=== PATIENT | male | born 1940 | race Caucasian/White ===

== ENCOUNTER 2016-08-19 01:52 | Day surgery (SDC) | payer MEDICARE, OTHER ==
[2016-08-19] VITALS (15 sets, daily range): BP systolic 105–126; BP diastolic 52–71; PULSE 45–59; RESP 12–22; O2SAT 96–98
[~2016-08-19] VITALS: Ht 170.2 cm; Wt 67.1 kg
[~2016-08-19 01:52] MED LIST: ASPI-973 PO; METO25TA6 PO; NITR0.4T6 SL; PRAV40TA PO
[2016-08-19 09:40] LABS: BASOPHILS % (AUTO) 0.6 % (0-3); EOSINOPHILS % (AUTO) 5.1 % (0-5); MONOCYTES % (AUTO) 6.4 % (4-12); Mean Corpuscular Volume 89.9 fL (81-100); NEUTROPHILS % (AUTO) 64.4 % (40-74); Platelet Count 244 bil/L (150-400)
[2016-08-19] MEDS ORDERED: 0.9% Sodium Chloride 1,000 ML IV ONE ×2 (11:00→18:20)
[2016-08-19] MEDS ORDERED: Heparin 1,000 Units/500 mL NS Premix IV ONE ×2 (11:34→12:56)
[2016-08-19] MEDS ORDERED: Heparin 5,000 Units/500 mL NS Premix IV ONE ×4 (11:34→13:34)
[2016-08-19] MEDS ORDERED: fentaNYL-PF 50 mCg/mL 2 mL Inj ONE ×2 (11:49→14:03)
[2016-08-19] MEDS ORDERED: Heparin 1,000 Unit/mL 10 mL Inj ONE (12:26)
[2016-08-19] MEDS ORDERED: Atropine 1 mg/10 mL (Code) Syringe ONE (12:31)
[2016-08-19] MEDS ORDERED: Nitroglycerin 50,000 mcg/250 mL D5W Premix IV ONE (13:14)
[2016-08-19] MEDS ORDERED: Abciximab Bolus 2 mg/mL 5 mL Inj ONE (14:24)
--- NOTE | 2016-08-19 15:49 | NUR ---
Care assumed Care assumed at 1530. Nurse reported tract ooze with one dressing change already. Pressure held for 10 minutes and dressing changed. Continue to monitor. VSS. Denies pain. Tele SB in mid 40's. IVF infusing per orders. Continue to monitor.
--- NOTE | 2016-08-19 16:50 | NUR ---
Transfer VSS. Groin remains with small amt. tract ooze. No hematoma. Report to Cheri Atkins RN at 1630. Transported to 2004 via bed at 1650 with all belongings in no distress. Bedside check done.
--- NOTE | 2016-08-19 17:50 | CS94 ---
[address] [address] DIAGNOSTIC CARDIAC CATHETERIZATION PATIENT: JENNY WESLEY : 1940 MR#: [id number] ADMIT: 08/19/2016 JOB ID: [id number] SERVICE DATE: 08/19/2016 PROCEDURES PERFORMED: 1. Coronary angiography. 2. Intravascular ultrasound of the right coronary artery. 3. Percutaneous intervention with stent placement to the right coronary artery (complex intervention). INDICATIONS: A 76-year-old man with past medical history significant for hyperlipidemia with approximately two years with stable anginal symptoms now with progressive anginal symptoms especially when going up inclines. He has an abnormal stress test suggesting inferior wall ischemia. DESCRIPTION OF PROCEDURE: Informed consent was obtained. Patient brought to catheterization laboratory. Bilateral groins were prepped and draped in usual fashion and the area over the right femoral artery was anesthetized with lidocaine using modified Seldinger technique and a micropuncture kit, access was obtained, a 5-Japanese sheath was advanced. Next, a 5-Japanese JL4 catheter was advanced over a wire and used to cannulate the left coronary artery and angiographic views obtained. This catheter was removed and a 5-Japanese JR4 catheter was advanced over a wire and used to cannulate to the right coronary artery and angiographic views obtained. Given findings of what appeared to be an occluded versus subtotalled right coronary artery, an intervention was planned. A current 5-Japanese sheath was removed, a 6-Japanese sheath was advanced. Next, a 6-Japanese no torque right guide was advanced over a wire and used to cannulate the right coronary artery. Angiographic view was obtained. Heparin was given for anticoagulation. A Prowater wire would not advance across the area of stenosis. Ultimately, a whisper wire was fed through an [id number]-joc-ylms 1.5 mm balloon. This was able to be ultimately advanced in the vessel; however the 1.5 mm balloon would not advance. This was changed out for a Recruiting Intern 50 wire in the hopes that it would give more backup so that the balloon would be passed, however this was not successful. Ultimately, the balloon was removed and the wire was advanced distally and Theralogix Corsair microcatheter was advanced and this was able to be advanced fairly distally so that injection performed to confirm that it was intraluminal. Ultimately, a grand slam wire was used to provide more strength and micro cath was removed. A 1.25 x 10 mm balloon was advanced to the area of stenosis and inflated to nine atmospheres throughout the area of stenosis. This was then removed and a 1.5 x 20 mm balloon was advanced over this area of stenosis and inflated in the range of 9-10 atmospheres. It was pulled back more proximally and inflated to 13 atmospheres. Ultimately, a 2 x 30 mm balloon was advanced to the area of stenosis. This was inflated to 10 atmospheres. After this, IVUS was advanced to assess the size of the vessel. Distal to the area of occlusion, the vessel was diffusely diseased and the diameter to the EEM was estimated in the range of 2.5 to 3 mm, however there was significant plaque. In the inner lumen, it was closer to 2 mm. Based upon the appearance of the vessel after balloon dilation and the diffuse nature of the plaque, decision was made to treat with a 2.25 mm balloon. However this was not available, therefore a 2.5 x 15 mm balloon was advanced to the area of stenosis and this was inflated in the range of 4-5 atmospheres. Ultimately, a 2.25 x 28 mm Xience stent was advanced. The stent was ultimately inflated to 10 atmospheres. A 2.5 x 12 mm balloon was advanced in the area of proximal stenting because additional stent was going to be required. This was inflated up to 10 atmospheres. An additional 2.25 x 12 mm stent was advanced proximally reassuring that there was appropriate stent overlap. This was inflated at 16 atmospheres. It was also advanced in the area of overlap and inflated in the range of 12 to 13 atmospheres with excellent flow distally. After stenting, this gave an excellent angiographic result with no residualstenosis, no dissection, and brisk flow in the artery. The case was ended. The guide and wire was removed. Hemostasis was achieved with StarClose device. There were no complications. FINDINGS: Coronaries: 1. Left main: This has minor disease. 2. Circumflex artery. This vessel has evidence for mostly mild luminal irregularities. 3. Left anterior descending artery. There is some mild disease appreciated in the proximal vessel. There are diagonals which supply an intermediate distribution which have no obstructive disease. There is evidence of some left to right collateralization filling the distal right coronary artery 4. Right coronary artery: This vessel appears in the range of 2.5 to 3 mm in its proximal segment. There is an area of what appears to be occluded with some distal filling of the vessel felt to be related to bridging collaterals which is rated at KRISTIN 1-2. However there appeared to be the potential for a track into the distal vessel. As noted, the area of occlusion was ultimately crossed. It was treated with increasing balloon dilation. IVUS was used to assess the size of the vessel and extent of plaque. Ultimately 2.25 mm stents were advanced in the area of of stenosis and deployed at nominal pressures with a final more proximal stent given the lack of availability of a long 2.25 mm stent which was inflated to higher atmospheres. After initial stenting, postdilation was performed throughout the stented area. After stenting, this gave an excellent angiographic result. There was brisk flow in the artery and there is no further evidence of competitive flow in the PDA as previously seen. HEMODYNAMICS: Aortic pressure in the range of 115-152 systolic, heart rates in the range of 75-100. Medications given during the case include sedation as per dental laboratory technician apprentice record. The patient was given normal saline during the course of the procedure. Also given heparin to achieve therapeutic ACTs. At the end of the case, he was given a prasugrel loading dose and bolus of ReoPro. The patient tolerated the procedure well. IMPRESSION: 1. 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 2. No other obstructive coronary disease appreciated. [facility]
[2016-08-19] MEDS ORDERED: Sodium Chloride LOK Flush 10 mL Syringe IVFLUSH PRN (18:20)
[2016-08-19] MEDS ORDERED: HYDROcodone-APAP 5-325 mg Tablet PO PRN (18:20)
[2016-08-19] MEDS ORDERED: Ondansetron 2 mg/mL 2 mL Inj IVPUSH PRN (18:20)
[2016-08-19] MEDS ORDERED: 0.9% Sodium Chloride 250 ML BOLUS IV PRN (18:20)
[2016-08-19] MEDS ORDERED: Atropine 1 mg/10 mL (Code) Syringe IVPUSH PRN (18:20)
--- NOTE | 2016-08-19 18:28 | NUR ---
Admit Pt admitted to [facility] at 1700 from [facility]. at the bedside. All belongings brought with. Pt A&Ox3, on bedrest till 194, SB 49, on RA. Right groin dressing at that time was CDI, minimal swelling and no bruising. Rechecked groin site at 1745 and the dressing had bled through, no increased swelling, minimal bruising noted. Held manual pressure for 15 min, notified and asked me to continue with manual pressure, when oozing slows add pressure dressing. Call if anything worrisome. Pressure dressing applied at 1830 with 5lb sand bag. Q15 min groin checks.
--- NOTE | 2016-08-19 21:00 | NUR ---
Groin site Pt's right groin site continues to ooze. Area soft, bruising under the surface. Charge and second CCU nurse examined. Pressure dressing applied.
--- NOTE | 2016-08-20 00:30 | NUR ---
Groin site oozing Pt's groin site continues to ooze. Pt found to be sitting up using the urinal after he was asked to keep flat as previous assessment showed that he was oozing at the site. Pt education surrounding the need to remain supine. Dressing changed.
[2016-08-20 03:00] LABS: Mean Corpuscular Volume 91.1 fL (81-100)
[2016-08-20 03:35] VITALS: BP 126/69; PULSE 52; RESP 16; O2SAT 96
--- NOTE | 2016-08-20 03:45 | NUR ---
Groin site oozing Pt's site no longer oozing past the guaze located directly on site. Non noted inside the Tegaderm outer dressing. Pressure bandage continues to be in place. Most lower legs warm, pulses strong and equal on both extremities. Pt denies any pain or discomfort.
[2016-08-20 08:00] VITALS: PULSE 60
[2016-08-20 08:40] VITALS: BP 109/69; PULSE 55; RESP 16; O2SAT 99
[2016-08-20] MEDS ORDERED: CLOP75TA28 PO (11:21)
--- NOTE | 2016-08-20 13:00 | NUR ---
Discharge Pt left at 1300 with via private car. A&Ox3, MA, up in [place] with . Right groin site soft and non tender, slight bruising, no bleeding since MD last checked. All discharge instructions gone over and understood. New prescription given and medication information given to pt. All belongings taken with. IVx2 and tele removed.
--- NOTE | 2016-08-20 21:19 | DIS ---
[address] [address] DISCHARGE SUMMARY PATIENT: JENNY WESLEY : 1940 MR#: [id number] ADMIT: 08/19/2016 JOB ID: [id number] DIS: 08/20/2016 ADMISSION DIAGNOSIS: Angina abnormal stress test. PROCEDURES PERFORMED: Cardiac catheterization with stenting of the right coronary artery. HISTORY OF PRESENT ILLNESS: The patient is a gentleman with hyperlipidemia who has been experiencing angina at high levels of exertion. He is already on antianginals at this time. HOSPITAL COURSE: The patient taken to the film laboratory technician. There, a very complex right coronary lesion was identified and felt to be an occluded vessel. However, this was able to be opened up and stented with two drug-eluting stents. The patient did well overnight without any problems with ectopy. There was some oozing from the StarClose closure site, however, this did not result in any significant change in hematocrit and ultimately was corrected with injection of lidocaine with epinephrine. PHYSICAL EXAMINATION: Prior to discharge, blood pressure 126/69, heart rate 52, he is afebrile. Sats are 96% on room air. In no acute distress. Speaking in full sentences without apparent shortness of breath. Head and neck exam: Normocephalic, atraumatic. Heart exam: Regular rate, rhythm. Lungs clear. Abdomen is soft. Extremities: Warm without edema. Groin site: There is some bruising but no hematoma. Good palpable pulse. No bruits. Again, some oozing around the access site which was corrected with lido with epi. LABORATORIES: On the day of discharge, show white count 7.6, H/H 12.8 and 38.8, platelets 228,000. Chemistry shows sodium 139, potassium 4.5, chloride and bicarb 102 and 23 respectively and BUN and creatinine 18 and 0.87. DISCHARGE MEDICATIONS: 1. Aspirin 325 mg a day for one month and going to 81 mg a day. 2. Metoprolol 25 b.i.d. as previously started by his primary care provider. 3. Plavix 75 mg p.o. daily. 4. Pravastatin He has a followup on August 31 at noon I spent greater than 30 minutes discussing the patient's diagnosis, the need for him to be compliant with aspirin and Plavix. I went over the films with the family members as well. MCKENNA
== END 2016-08-20 13:00 | disposition home or self-care (01) ==
LOC: SOUO 01:52 → PCC 16:49 → SOUO 08-20 13:00
PROVIDERS: ATTEND Internal Medicine
DX: I25.119 Atherosclerotic heart disease of native coronary artery with unspecified angina pectoris (principal); E78.5 Hyperlipidemia, unspecified; Z79.82 Long term (current) use of aspirin
CPT/HCPCS: 36415; 80048; 85025; 85027; 92978; 93005; 93454; 99152; 99153; C1725; C1753; C1760; C1769; C1874; C1887; C9600; J0130; J1200; J1644; J2060; J2250; J3010; J7030; Q9967

== ENCOUNTER 2017-01-07 12:10 | Emergency (ER) | payer MEDICARE, OTHER ==
[~2017-01-07] VITALS: Ht 170.2 cm; Wt 65.9 kg
[~2017-01-07 12:10] MED LIST changes: +CLOP75TA28 PO; +NITR0.4T38 SL; -NITR0.4T6 SL
[2017-01-07 12:18] VITALS: BP 108/38; PULSE 52; RESP 16; O2SAT 100
--- NOTE | 2017-01-07 12:31 | ED.REPORT ---
HPI-Syncope Date of Service Jan 07, 2017 ED Provider: Jenna Lai MD The patient is a 77 year old male with a hx of a heart catheter and stent on August 20, 2016, and he takes Metoprolol presenting to the ED via EMS complaining of a near-syncopal episode onset today while he was at the gym using a standing gluteal machine. The episode lasted about 10 minutes and started to get better when he was placed on the floor. The patient claims that he did have breakfast before going to the gym and did not feel dehydrated. He claims that he feels dizziness, fatigued, and tunnel vision. Per the diabetes trainer, the patient was unresponsive. The patient denies fever, chills, nausea, SOB, chest pain or wheezing. Nursing Notes Stated Complaint: SYNCOPE Chief Complaint: General Complaint Nursing Notes Reviewed: Yes Allergies: Coded Allergies: Penicillins (Verified Allergy, Intermediate, 01/07/17) RASH AT INJECTION SITE Scheduled Aspirin (Aspirin) 81 Mg Tablet 325 MG PO DAILY Clopidogrel (Clopidogrel) 75 Mg Tablet 75 MG PO DAILY Metoprolol Tartrate (Metoprolol Tartrate) 25 Mg Tablet 25 MG PO BID Pravastatin (Pravastatin) 40 Mg Tablet 20 MG PO DAILY Scheduled PRN Nitroglycerin SL (Nitroglycerin SL) 0.4 Mg Tab.subl 0.4 MG SL PRN For Pain General Time Seen by Provider: 12:30 Chief Complaint Almost passed out Hx Obtained From: EMS Arrived By: Ambulance Onset Occurred: Just prior to arrival Context of Onset: Occurred during sports (working out at gym) Recent Healthcare: No recent doctor visit, No recent hospitalization Similar Sx Previous: No Past Medical History Past Medical History heart catheter with stent August 20, 2016 Metoprolol Past Surgical History Heart catheter with stent August 20, 2016 Sinus surgery Smoking History Unknown if Ever Smoker Social History Other Social History: Good social support Ambulatory Status Independent Review of Systems +tunnel vision Constitutional: Reports: Fatigue, Denies: Chills, Fever Respiratory: Denies: Shortness of breath, Wheezing Cardiovascular: Denies: Chest pain GI: Denies: Nausea Neurologic: Reports: Dizziness, Syncope (near-syncope) Complete sys rev & neg: except as marked. Physical Exam Initial Vital Signs Vital Signs (First) Date Time Temp Pulse Resp B/P Pulse Ox O2 Delivery O2 Flow Rate FiO2 01/07/17 12:18 36.1 52 16 108/38 100 Room Air Initial VS: Reviewed, Vital signs normal Head / Eyes: Atraumatic, Normocephalic, PERRL Abdomen / GI: Soft, Non-tender, No guarding, No rebound, No distention Back: No CVA tenderness Upper Extremities: Vascular intact, Neuro intact, No swelling, No tenderness Psychiatric: Mood/affect normal, Behavior normal, Normal thought content General/Constitutional: Awake, Alert, Well appearing Respiratory / Chest: Breath sounds NL, Breath sounds = bilat, No respiratory distress, No rales, No rhonchi, No wheezing Cardiovascular: Heart rate NL, Regular rhythm, Heart sounds NL, No murmurs Sitting: BP 98/53 HR 54 Standing: BP 104/53 HR 60 Lower Extremity / Pelvis / MS: Atraumatic, No edema Neurologic: Oriented X3, Speech NL, No motor deficits, No sensory deficits, CN II - XII intact, Reflexes equal bilat, Cerebellar NL well perfused neurologically Skin: Atraumatic, Warm, Dry 2-3 day old bruise on left arm Interpretation & Diagnostics Lab Results Interpretation Result Diagram: 01/07/17 1230 01/07/17 1230 Test 01/07/17 12:30 White Blood Count 10.3th/mm3 (3.8-10.1) Red Blood Count 4.39mil/mm3 (4.40-5.80) Hemoglobin 13.8g/dL (13.8-17.2) Hematocrit 39.7% (41.0-50.0) Mean Corpuscular Volume 90.4fL (81-100) Mean Corpuscular Hemoglobin 31.4pg (27.0-35.0) Mean Corpuscular Hemoglobin Concent 34.8% (32.0-37.0) Red Cell Distribution Width 12.6% (12.3-15.4) Platelet Count 207bil/L (150-400) Neutrophils (%) (Auto) 74.8% (40-74) Lymphocytes (%) (Auto) 12.6% (14-46) Monocytes (%) (Auto) 6.0% (4-12) Eosinophils (%) (Auto) 6.1% (0-5) Basophils (%) (Auto) 0.4% (0-3) Prothrombin Time 10.4sec (8.1-12.5) Prothromb Time International Ratio 0.97ratio Sodium Level 140mEq/L (134-144) Potassium Level 4.4mEq/L (3.5-5.2) Chloride Level 104mEq/L (97-108) Carbon Dioxide Level 22mmol/L (18-29) Blood Urea Nitrogen 21mg/dL (8-27) Creatinine 0.86mg/dL (0.76-1.27) Estimat Glomerular Filtration Rate 92mL/min (>59) Glucose Level 80mg/dL (60-99) Calcium Level 9.0mg/dL (8.5-10.1) Magnesium Level 2.1mg/dL (1.6-2.6) Total Bilirubin 0.9mg/dL (0.0-1.2) Aspartate Amino Transf (AST/SGOT) 48U/L (0-50) Alanine Aminotransferase (ALT/SGPT) 31U/L (0-44) Alkaline Phosphatase 58U/L (25-160) Troponin T < 0.010ug/L (0.0-0.011) Total Protein 6.4g/dL (6.4-8.4) Albumin 4.0g/dL (3.4-5.0) Hold Smith Top Tube Received (Received) ECG Interpretation ECG Interpretation: Similar to 08/19/16 Nonspecific intraventricular conduction delay Time: 12:28 Interpreted by: ED physician Normal ECG Interpretation: Normal rate (54), Normal sinus rhythm, No acute ischemic changes X-Ray Chest Interpretation Chest Xray Interpretation: IMPRESSION: No acute disease. Dictated by: Lenny Minor M.D. on 01/07/2017 at 12:17 Approved by: Lenny Minor M.D. on 01/07/2017 at 12:18 View: Portable, 1 view Interpretation / Wet Read by: Interpret - Radiologist Re-Eval/Medical Decision Med Decision/Clinical Course 77-year-old gentleman status cardiac post stent placement in July of this year. Doing well exercising regularly working with a diabetes trainer this morning and had a near syncopal episode. No chest pain diaphoresis or shortness of breath. Was found to be slightly hypotensive by medics initially. Did receive 700 mL of fluid in route to ER. He was not orthostatic upon arrival in the emergency department. His ER visit is entirely unremarkable with monitor tech remaining normal chest x-ray labs and EKG are unremarkable with a normal troponin. Patient was just seen by his salt machine operator, Dr. Maria Fernanda Medina, last week. Spoke with her this afternoon and she would like him to come over to her office after departing from the emergency department. We'll arrange for extended cardiac monitoring. No evidence for acute cardiac event acute coronary syndrome STEMI stroke orthostatic hypotension infection or other life-threatening etiology at this time Re-Evaluation/Progress : Time of Eval: 13:45 Patient Status: Condition improved Re-Evaluation/Progress Note: Patient rechecked. Discussed plan to discharge. Patient understands and agrees with plan. All questions addressed at this time. Consultation : Referral / Consult Name: Clotilde Medina MD Consulted With: Primary care physician Call Returned at: 13:39 Sports Medicine Physician: Will see in office Note: Recommends that we send him to her office for outpatient monitoriing. Counseled Regarding: Diagnosis, Lab results, Need for follow-up, When/why to return to ED Discharge & Departure Impression: Primary Impression: Near syncope Ruled Out: CAD (coronary artery disease), Stroke, STEMI (ST elevation myocardial infarction) Disposition: Home Discharge Condition All VS Reviewed: Yes Condition: Improved Patient Instructions: Near Syncope (ED) Additional Instructions: Thank you entrusting us with your care today. All of your tests today including an EKG, chest X ray, and labs were reassuring. No acute cause for your symptoms was identified today. Please follow up with Dr. Medina immediately after leaving the ER for further testing. Return to the ER for any sever headache, chest pain, shortening of breath, fever , chills, nausea, vomiting, or any new or concerning symptoms. Referrals: Remy Cannon MD (PCP) [place] Attestation Portions of this note were transcribed by Sharlene Hansen and Eusebio Churchill. I, Dr. Lai personally performed the history, physical exam and medical decision -making; I reviewed and confirmed the accuracy of the information in the transcribed note. Signed by: Patrick Foss, 01/07/2017 copies to: Clotilde Medina MD; Remy Cannon MD, Shawna L MD Jan 07, 2017 12:31 Jan 07, 2017 12:41
[2017-01-07 12:42] LABS: BASOPHILS % (AUTO) 0.4 % (0-3); EOSINOPHILS % (AUTO) 6.1 % (0-5); Mean Corpuscular Hemoglobin 31.4 pg (27.0-35.0); Mean Corpuscular Volume 90.4 fL (81-100); NEUTROPHILS % (AUTO) 74.8 % (40-74); Platelet Count 207 bil/L (150-400)
[2017-01-07 13:11] LABS: INR 0.97 ratio
[2017-01-07 13:14] LABS: TROPONIN T < 0.010 ug/L (0.0-0.011)
--- NOTE | 2017-01-07 13:19 | DRSVH ---
PROCEDURE: X-RAY CHEST ONE VIEW, PORTABLE ([id number]) INDICATIONS: sob TECHNIQUE: One view of the chest was acquired. COMPARISON: None. FINDINGS: Surgical changes and devices: None. Lungs and pleura: No pleural effusions or pneumothorax. Lungs are clear. Mediastinum: Mediastinal contours appear normal. Heart size is normal. Bones and chest wall: No suspicious bony lesions. Bilateral shoulder joint degeneration. Overlying s oft tissues appear unremarkable. IMPRESSION: No acute disease. Dictated by: Lenny Minor M.D. on 01/07/2017 at 12:17 Approved by: Lenny Minor M.D. on 01/07/2017 at 12:18
[2017-01-07 13:23] LABS: Magnesium 2.1 mg/dL (1.6-2.6)
[2017-01-07 14:13] VITALS: BP 105/51; PULSE 55; RESP 13; O2SAT 99
== END 2017-01-07 14:14 | disposition home or self-care (01) ==
LOC: SED 12:10
DX: R55 Syncope and collapse (principal); R42 Dizziness and giddiness; R53.83 Other fatigue; H53.8 Other visual disturbances; Z95.5 Presence of coronary angioplasty implant and graft; Z98.890 Other specified postprocedural states; Z79.82 Long term (current) use of aspirin; Z88.0 Allergy status to penicillin